=== PATIENT | male | born 1945 | race Caucasian/White ===

== ENCOUNTER → 2018-01-16 08:07 | Outpatient (CLI) | payer MEDICARE, OTHER, SELFPAY ==
--- NOTE | 2018-01-16 | DI.ECHO.S_ITS ---
[facility]---------+ [facility] +---------+ : : [address] : : : : [id number] : : : : Phone: [phone] Echocardiogram Report + + :Name: PATRICIA SIMS Study Date: 01/16/2018 Height: 71 in : :[facility] Weight: 219 lb : : Gender: Male BSA: 2.2 m2 : :: 1945 Age: 72 yrs BP: 134/88 mmHg: :Reason For Study: CAD : :Ordering Physician: Frances : :Rut Performed By: Taniya Tyson : :Referring: Dr. Tinajero Roof : + + Interpretation Summary Normal sinus rhythm. Normal LV size and wall thickness; there is global hypokinesis. Limited endocardial visualization precludes meaningful EF quantification, but it is at least mildly reduced. Normal chamber sizes. No significant valvular abnormalities. Compared to prior study 11/23/2016, LV is less dynamic Procedure: A two-dimensional transthoracic echocardiogram with color flow and Doppler was performed. The study quality was technically good. Comparison is made with the echocardiogram of 11-23-16. The patient was in normal sinus rhythm during the exam. Left Ventricle: The left ventricle is normal in size. There is normal left ventricular wall thickness. Diastolic function could not be accurately assessed due to unobtainable data. Right Ventricle: The right ventricle grossly appears normal in size with probable normal systolic function. Atria: The left atrial size is normal. Right atrial size is normal. The interatrial septum is intact with no evidence for an atrial septal defect. Mitral Valve: The mitral valve is grossly normal. There is trace mitral regurgitation. Aortic Valve: The aortic valve opens well. No aortic regurgitation is present. Tricuspid Valve: The tricuspid valve is normal in structure and function. No tricuspid regurgitation. Pulmonic Valve: The pulmonic valve is not well seen, but is grossly normal. There is trace pulmonic regurgitation. Great Vessels: The aortic root is normal size. The ascending aorta is at the upper limits of normal in size. The aortic arch is normal in size. The IVC is of normal diameter and collapses greater than 50% with a sniff. This suggests a low right atrial pressure of 3 mm Hg. Pericardium/ Pleura There is no pericardial effusion. There is no pleural effusion. MMode/2D Measurements & Calculations LVIDd: 4.4 cm Ao root diam: 3.5 cm LVIDs: 3.4 cm Aortic Jxn: 2.6 cm FS: 22.6 % asc Aorta Diam: 3.5 cm IVSd: 0.94 cm Ao Arch Diam (Prox Trans): 2.6 cm LVPWd: 0.65 cm LV mckinley. diameter/BSA (cm/m^2): 2.0 LV sys. diameter/BSA (cm/m^2): 1.6 LA dimension: 3.0 cm RA long axis: 5.1 cm LA A2 area: 17.1 cm2 RA area: 20.3 cm2 LA A4 area: 25.1 cm2 RA vol: 68.9 ml LA length (vol): 5.8 cm RA : 31.5 ml/m2 LA vol: 62.9 ml IVC diam: 1.4 cm LA vol index: 28.7 ml/m2 RVDd major: 4.7 cm RVD1 (basal): 3.1 cm RVD2 (mid): 2.9 cm Doppler Measurements & Calculations Ao V2 max: 109.7 cm/sec MV E max jaxon: 41.4 cm/sec Ao V2 mean: 81.3 cm/sec MV A max jaxon: 78.4 cm/sec Ao max P.8 mmHg MV E/A: 0.53 Ao mean P.9 mmHg Med Peak E' Jaxon: 5.2 cm/sec Ao V2 VTI: 24.8 cm E/E' med: 8.0 Lat Peak E' Jaxon: 5.2 cm/sec E/E' lat: 8.0 E/e' average: 8.0 MV dec time: 0.26 sec MV P1/2t: 75.4 msec PA V2 max: 67.8 cm/sec MV P1/2t max jaxon: 41.2 cm/sec PA V2 mean: 46.8 cm/sec MVA(P1/2t): 2.9 cm2 PA mean P.0 mmHg PA Accel Time: 0.16 sec Reading Physician:03:27 AM
== END ==
PROVIDERS: PCP Internal Medicine; Visit Provider Internal Medicine
DX: I25.10 Atherosclerotic heart disease of native coronary artery without angina pectoris (principal)
CPT/HCPCS: 93306

== ENCOUNTER → 2021-05-04 08:47 | Outpatient (CLI) | payer MEDICARE, OTHER, SELFPAY ==
--- NOTE | 2021-05-04 | DI.RAD.S_ITS ---
PROCEDURE: FL BARIUM SWALLOW W SPEECH INDICATIONS: Acute pharyngitis, unspecified COMPARISON: None. TECHNIQUE: Examination was conducted in conjunction with speech pathology per standard protocol. In the lateral projection, filming was performed of the patient swallowing. AP projection filming may also be performed with patient swallowing. COMPARISON: FINDINGS: Function: The oral preparatory phase appears normal, with proper containment. The subsequent oral propulsive phase, pharyngeal phase, and esophageal phase of swallowing also appear normal with all proffered substances. No laryngotracheal penetration or aspiration. No pathologic vallecular pooling. Morphology: No cricopharyngeal bar is identified. No cervical esophageal webs. No Zenker's diverticulum. No strictures. A calibrated barium tablet passes normally through the gastroesophageal junction. IMPRESSION: No laryngeal penetration or tracheobronchial aspiration. Of note, please see independent report generated by the speech pathologist for further detailed specifics and characterization of the modified speech swallow study. Dictated by: Karel Kaufman M.D. on 05/04/2021 at 11:12 Approved by: Karel Kaufman M.D. on 05/04/2021 at 11:13
--- NOTE | 2021-05-04 16:05 | ST.SWALLOW ---
Visit Care Team Role Provider Type Marian Underwood MD Attending Provider Non-Staff Primary Care Provider Referring Provider Specialty: Medical Address: [address] [place] [address], [id number] Email: Modified Barium Swallow Study NEWSPAPER REPORTER Modified Barium Swallow Study Start: 05/04/21 11:24 Freq: Status: Active Protocol: Document 05/04/21 11:24 LNK (Rec: 05/04/21 16:04 LNK [id number]) Modified Barium Swallow Study Total Time Visit Start Time 09:30 Visit Stop Time 10:15 Total Visit Minutes [address] Snyder, ENT; PCP- Dr Salazar Reason for Referral difficulty with swallowing Setting Setting Outpatient Care Patient Information Identification Type Name,Date of Patient History Pt presented with difficulty swallowing that has been progressively harder to swallow and is more painful. He reported a medical history of advanced prostate cancer. Pt states he cannot eat/ swallow 'regular foods'. He describes his current diet as consisting of oatmeal with fruit, cottage cheese and other very soft foods. Advanced solids are very difficult and painful to swallow. Pt reports that this swallow problem has been occurring for approximately 5 months. He describes swallowing as though his throat closes up and becomes tight. Additionally, he reports frequent coughing and choking. Pt notes a very dry mouth, especially at night. He keeps water and lozenges nearby all day and night, which help with oral/throat moisture. Pt also described his voice as weak and reduced in volume. He stated he is very careful to preserve vocal strength, choosing non-verbal communication, if possible. Subjective Observations Pt was seated in the fluoroscopy chair and given directions and instructions. He indicated he understood and agreed to proceed. Patient Positioning Position View Lat-A/P Imaging Lateral View Textures Administered Trials Presented Thin Liquid via Spoon,Thin Liquid via Cup,Pudding Thick Liquid via Spoon,Regular Textures Oral Phase Source: MBSIMP (TM) (C) Bolus Specific Scoring Grid Lip Closure No Impairment (WNL) Tongue Control During Bolus Hold No Impairment (WNL) Bolus Prep/Mastication No Impairment (WNL) Bolus Transport/Lingual Motion No Impairment (WNL) A/P Lingual Propulsion Delay No Oral Residue WFL Nasal Regurgitation No Additional Oral Phase Observations OME was observed to be WNL for strength and ROM. Oral phase of swallow was WNL, demonstrating rotary chew for mastication, good bolus hold, control and AP transition to pharynx. Pharyngeal Phase Source: MBSIMP (TM) (C) Bolus Specific Scoring Grid Delayed Initiation of Pharyngeal Swallow Yes: Pre-swallow spillage to the valeculla and pyrifom sinuses Soft Palate Elevation No Impairment (WNL) Tongue Base Strength/Range of Motion Mild Impairment Residue Along the Tongue Base Yes Laryngeal Elevation No Impairment (WNL) Anterior Hyoid Movement Moderate Impairment Epiglottic Range of Motion No Impairment (WNL) Vallecular Residue Yes Clearance of Vallecular Residue Mild Impairment Laryngeal Vestibular Closure No Impairment (WNL) Pharyngeal Stripping Wave Mild Impairment Pharyngeal Contraction WFL Posterior Pharyngeal Wall Residue No Residue in the Pyriform Sinuses No Esophageal Clearance Upright Position Mild Impairment Pharyngoesophageal Backflow Observed No Additional Pharyngeal Phase Observations Swallow response was delayed with good laryngeal elevation; however the movement of the hyoid was minimal. This resulted in mild laryngopharyngeal contact and mildly reduced posterior wall constriction. During each swallow, a noticeable narrowing of the pharynx was observed near C3. Anterior and posterior bulges of tissue were observed opposing each other, significantly restricting bolus flow to the UES. No obvious osteophyte was noted at C3 that could explain the posterior bulge. Several swallows were needed in order for the bolus to clear the pharynx. Advanced texture trial of a cookie with barium was difficult, requiring >4 swallows. Moderate residue of the trial remained in the valeculla, necessitating water to clear residue. The pt was clearly using effort to swallow and he appeared to be in pain with each swallow attempt. The laryngeal seal was complete with good airway protection. No aspiration or laryngeal penetration were observed. A/P View Textures Administered Trials Presented Regular Textures A/P View Observations Vocal Fold Function Good Residue Observed Valleculae Right,Valleculae Left Esophageal Function WFL Esophageal Clearance Upright Position WFL Additional Observations Upon initiation of the swallow in AP view. The 13mm pill deviated to the right side of the pharynx before entering the esophagus. Once in the esophagus, the tablet was swallowed with more sips of water. Clinical Impressions Findings The pt demonstrated mild pharyngeal dysphagia secondary to narrowed pharynx caused by opposing bulges of soft tissue near C3 above the UES during the swallow. The bulges are not apparent at rest. These bulges narrowed the pharynx significantly and may be related to the pt's c/o tightening in his throat and pain when swallowing. Swallow therapy may be indicated; however the exercises will be tongue base focused. These exercises will not address the pharyngeal narrowing during swallows or address the pt's pain with swallowing. Recommend referral back to ENT for further assessment. Patient Appropriate for Therapy see above Recommendations Diet Comments continue current diet as tolerated Treatment Plan Therapy Recommendations Lingual Exercises Recommended Referrals ENT Consult
== END ==
PROVIDERS: PCP Internal Medicine; Referring Provider Internal Medicine; Visit Provider Internal Medicine
DX: J02.9 Acute pharyngitis, unspecified (principal)
CPT/HCPCS: 74230; 92611

== ENCOUNTER → 2021-06-04 09:11 | Outpatient (CLI) | payer MEDICARE, OTHER, SELFPAY ==
--- NOTE | 2021-06-04 09:14 | DI.ECHO.S_ITS ---
Version: 1 Study ID: [id number] [place] [address] Name: PATRICIA SIMS Study Date: 06/04/2021, 9: 27 AM : 1945 BP: 118 / 71 mmHg Gender: Male Height: 70 in Age: 75 Years Weight: 180.003 lb BSA: 2.00 mA? Ordering: Daniel Ji M.D. Referring: DANIEL JI Clinician: Tee Sanchez Reason For Study: CAD History: Summary Statements Normal sinus rhythm. Normal LV size and wall thickness. There is basal anteroseptal, mid-anteroseptal hypokinesis, mid-anterior akinesis. Otherwise normal wall motion. EF is 35-40%. Normal chamber sizes. No valvular abnormalities. Compared to prior study 01/2019 LV is less dynamic. EF is down from 45-50% to 35-40%. Procedure: A two-dimensional transthoracic echocardiogram with color flow and Doppler was performed. The study quality was technically adequate. Comparison is made with the echocardiogram of 02/02/2019. Left Ventricle: Diastolic parameters suggest a relaxation abnormality of the left ventricle, consistent with probable normal filling pressures. Left ventricular systolic function is moderately reduced. Left ventricular ejection fraction is estimated to be 35 +/- 5%. The left ventricle is normal in size and wall thickness. There is septal wall severe hypokinesis. There is apical severe hypokinesis. Right Ventricle: The right ventricle is normal in size and function. Atria: The interatrial septum grossly appears intact with no obvious evidence for an atrial septal defect. Both atria are normal in size. Mitral Valve: There is trace mitral regurgitation. There is mild mitral annular calcification. Aortic Valve: There is trace aortic regurgitation. There is mild aortic valve sclerosis. Tricuspid Valve: Pulmonary artery pressures cannot be estimated because of the lack of a measurable TR jet velocity. No tricuspid regurgitation. The tricuspid valve is normal in structure and function. Pulmonic Valve: There is a trace or physiologic amount of pulmonic regurgitation. The pulmonic valve is not well seen, but is grossly normal. Great Vessels: The ascending aorta could not be visualized. The aortic root is normal size. The IVC is of normal diameter and collapses greater than 50% with a sniff. This suggests a low right atrial pressure of 3 mm Hg. Pericardium/ Pleura: There is no pericardial effusion. There is no pleural effusion. 2D and M-Mode Measurements and Calculations LVIDd: 4.3 cm LVOT diam: 2.10 cm LVIDs: 3.4 cm Ao root diam: 3.4 cm IVSd: 1.00 cm LVPWd: 0.90 cm LV mckinley. diameter/BSA (cm/m^2): 2.15 LV sys. diameter/BSA (cm/m^2): 1.70 TAPSE_phl: 1.97 cm LA A4 area: 22.1 formation testing operator? RA long axis: 5.3 cm LA A2 area: 18.7 formation testing operator? LA length (vol): 6.0 cm LA vol: 58.5 ml LA vol index: 29.3 ml/mA? Doppler Measurements and Calculations Ao V2 max: 104.0 cm/sec LVOT Max Jaxon: 96.0 cm/sec Ao V2 mean: 78.3 cm/sec LV V1 max P.7 mmHg Ao V2 VTI: 23.0 cm LV V1 VTI: 20.7 cm Ao max P.0 mmHg Ao mean P.0 mmHg JEAN-PIERRE(I,D): 3.1 formation testing operator? JEAN-PIERRE(V,D): 3.2 formation testing operator? JEAN-PIERRE indexed to BSA (cm^2/m^2): 1.56 sev ratio: 0.90 MV E max jaxon: 44.1 cm/sec MV dec time: 0.31 sec MV A max jaxon: 59.1 cm/sec MV E/A: 0.75 Med Peak E' Jaxon: 7.5 cm/sec Lat Peak E' Jaxon: 8.4 cm/sec E/e' average: 5.5 Electronically signed by: Daniel Ji M.D. 06/06/2021, 9: 10 AM
== END ==
PROVIDERS: PCP Internal Medicine; Referring Provider Internal Medicine; Visit Provider Internal Medicine
DX: I35.8 Other nonrheumatic aortic valve disorders (principal); I25.10 Atherosclerotic heart disease of native coronary artery without angina pectoris
CPT/HCPCS: 93306

== ENCOUNTER → 2021-09-29 09:07 | Outpatient (CLI) | payer MEDICARE, OTHER, SELFPAY ==
--- NOTE | 2021-09-29 | DI.ECHO.S_ITS ---
Version: 1 Study ID: [id number] [place] [address] Name: PATRICIA SIMS Study Date: 09/29/2021, 9: 25 AM : 1945 BP: 111 / 72 mmHg Gender: Male Height: 70 in Age: 76 Years Weight: 183 lb BSA: 2.01 mA? Ordering: DANIEL JI Referring: DANIEL JI Clinician: Tee Sanchez Reason For Study: ICMP History: Summary Statements Normal sinus rhythm. Normal LV size and wall thickness. There is basal anteroseptal, mid-anteroseptal akinesis. There is mid-inferoseptal akinesis. EF is 45-50%. Normal chamber sizes. No significant valvular abnormalities. Compared to prior study 06/04/2021 LV is more dynamic. EF is up from 35-40% to 45-50%. Procedure: A two-dimensional transthoracic echocardiogram with color flow and Doppler was performed in limited views only. The study quality was technically adequate. Comparison is made with the echocardiogram of 06/04/2021. Left Ventricle: Left ventricular systolic function is mildly reduced. The ejection fraction is estimated to be 45-50%. The left ventricle is normal in size and wall thickness. There is septal wall hypokinesis. Right Ventricle: The right ventricle is normal in size and function. Atria: Mitral Valve: Aortic Valve: Pulmonic Valve: Great Vessels: Pericardium/ Pleura: There is no pericardial effusion. There is no pleural effusion. 2D and M-Mode Measurements and Calculations LVIDd: 4.6 cm LVIDs: 3.5 cm IVSd: 0.80 cm LVPWd: 0.93 cm LV mckinley. diameter/BSA (cm/m^2): 2.28 LV sys. diameter/BSA (cm/m^2): 1.74 Electronically signed by: Daniel Rose.D. 09/29/2021, 2: 32 PM
== END ==
PROVIDERS: PCP Internal Medicine; Referring Provider Internal Medicine; Visit Provider Internal Medicine
DX: I25.5 Ischemic cardiomyopathy (principal)
CPT/HCPCS: 93307

== ENCOUNTER → 2021-12-08 10:54 | Outpatient (CLI) | payer MEDICARE, OTHER, SELFPAY ==
[2021-12-08 13:01] LABS: COVID19 -Nasal RAPID Negative (Negative)
== END ==
PROVIDERS: PCP Internal Medicine; Visit Provider Surgery
DX: Z20.822 Contact with and (suspected) exposure to COVID-19 (principal); Z01.812 Encounter for preprocedural laboratory examination
CPT/HCPCS: 87635; C9803

== ENCOUNTER 2021-12-09 13:22 | Day surgery (SDC) | payer MEDICARE, OTHER, SELFPAY ==
[2021-12-09] VITALS (7 sets, daily range): BP systolic 90–111; BP diastolic 59–71; PULSE 55–66; RESP 14–16; TEMP 35.9–36.1; O2SAT 96–100; BMI 26.1
--- NOTE | 2021-12-09 | PATH_ITS ---
[facility] Accession Number: [id number] No. of containers..01 Tissue . 01 Material submitted: . stomach - STOMACH BIOPSY . 01 Clinical history: . R/O HPYLORI . 01 Diagnosis: Stomach, Biopsy: Gastric antral mucosa with mild features of reactive gastropathy and mild chronic inflammation. Negative for Helicobacter organisms by immunohistochemistry. Negative for intestinal metaplasia. Negative for dysplasia or malignancy. MRV 12/15/2021 1104 Local . 01 Electronically signed: . Jose Angel Lawrence MD, PhD, Pathologist NPI- [id number] . 01 Gross description: . STOMACH BIOPSY: Received in formalin is 1 fragment(s) of tuttle, soft tissue measuring 0.4 x 0.3 x 0.2 cm submitted entirely in 1 cassette(s) /CPE 12/10/2021 0747 Local . 01 Microscopic: . An immunohistochemical stain was performed to evaluate for Helicobacter organisms and is negative. The control stain showed appropriate reactivity. . * This test was developed and its performance characteristics determined by [facility]. It has not been cleared or approved by the U.S. Food and Drug Administration. The FDA has determined that such clearance or approval is not necessary. This test is used for clinical purposes. It should not be regarded as investigational or for research. . 01 Pathologist provided ICD-10: R13.10, K29.60 . 01 CPT . 100632, [id number] Specimen Comment: A courtesy copy of this report has been sent to [phone] Performed at: 01 [facility] [address] [place] [address] [address], [place], [place] [id number] MD Archie Armas MD Phone: [phone]
[2021-12-09] MEDS: LACTATED RINGERS 1,000 ML 42 ML IV (14:46)
--- NOTE | 2021-12-09 14:48 | PM.PREOP ---
Pre-operative Note COVID-19 COVID-19 status: Negative Interval Note History & Physical reviewed/Exam performed by Physician: Yes Changes to H&P: No ASA Class (for procedural sedation): III
--- NOTE | 2021-12-09 14:48 | PM.OP.EGD ---
Operative Date/Time/Diagnoses Date of procedure: 12/09/21 Pre-op diagnosis: See indication and findings Procedure & Clinicians Study performed: EGD Indications: Left-sided neck and suprasternal dysphagia and odynophagia. Workup so far negative including modified barium swallow. Rule out intrinsic structural lesion Surgeon: Benton Sotelo Procedure Notes Procedure in detail: After informed consent was obtained patient was placed in left lateral decubitus position. The video upper scope placed into the oropharynx and with the patient's help swallowed into the esophagus. The scope was passed the esophagus stomach and duodenum. On slow withdrawal mucosa was carefully examined. The scope was removed. The patient tolerated procedure well. Blood loss none Complications none Sedation propofol Findings 1. Normal hypopharynx, photos taken 2. Normal esophagus particularly without any abnormality in the proximal/cervical esophagus. 3. Normal GE junction 4. Patchy gastric erythema with 2-3 hematin flecks. Biopsies taken to rule out Helicobacter 4. Normal duodenal bulb and sweep I will have our medical oncology physician Alma Delia Tinajero ask Dr. Brown: Whether he prefers ultrasound or CT of the neck for follow-up prior to seeing him in the office.
== END 2021-12-09 16:07 | disposition home or self-care (01) ==
PROVIDERS: PCP Internal Medicine; Referring Provider Internal Medicine Gastroenterology; Visit Provider Internal Medicine Gastroenterology
PROC: 0DJ08ZZ Inspection of Upper Intestinal Tract, Via Natural or Artificial Opening Endoscopic (ICD-10-PCS; CPT 43235; principal; 2021-12-09 14:30)
DX: R13.19 Other dysphagia (principal); K31.9 Disease of stomach and duodenum, unspecified; K29.50 Unspecified chronic gastritis without bleeding
CPT/HCPCS: 43239; J2704

== ENCOUNTER → 2021-12-18 08:14 | Outpatient (CLI) | payer MEDICARE, OTHER, SELFPAY ==
--- NOTE | 2021-12-18 | DI.CT.S_ITS ---
PROCEDURE: CT SOFT TISSUE NECK W CON INDICATIONS: DYSPHAGIA TECHNIQUE: After the administration of intravenous contrast, 3.0 mm axial sections acquired from the sella to the aortic arch. Additional oblique axial 3.0 mm sections acquired through the pharynx. 3 mm thick coronal and sagittal reformats were generated. For radiation dose reduction, the following was used: automated exposure control. COMPARISON: Outside Film, CT, CT SOFT TISSUE NECK WITH CONTRAST, 05/07/2021, 7:37. FINDINGS: Image quality: There is artifact associated with the metallic hardware. Lymph nodes: No enlarged lymph nodes seen throughout the neck. Vessels: Visualized vasculature appears patent. Neck spaces: In this patient with this given history, scrutiny is given to mucosal masses. None can be seen. The oropharynx, nasopharynx, and pharynx appear unremarkable. The vocal cords, false vocal cords, pyriform sinuses, epiglottis, vallecula, and tongue base all appear normal. Extramucosal spaces appear unremarkable. Glands: The parotid and submandibular glands appear normal. Thyroid gland is small in size. Miscellaneous: Visualized brain and orbits appear normal. Lung apices appear clear. Superficial soft tissues appear normal. Bones: No suspicious bony lesions. Visualized sinuses and mastoids appear unremarkable. Cervical spine degenerative changes are seen, with at least moderate disc space narrowing seen at C5-C6 and at C6-C7. IMPRESSION: No masses are seen to explain the patient's presenting symptoms. No enlarged lymph nodes are seen. Dictated by: Neel Reis M.D. on 12/18/2021 at 9:56 Approved by: Neel Reis M.D. on 12/18/2021 at 9:58
[2021-12-18 08:47] LABS: BUN Creatinine Ratio 21.5 (6-22); Blood Urea Nitrogen 17 mg/dL (9-20); Estimated Glomerular Filt Rate > 60 mL/min (>60)
== END ==
PROVIDERS: PCP Internal Medicine; Referring Provider Internal Medicine Gastroenterology; Visit Provider Internal Medicine Gastroenterology
DX: R13.10 Dysphagia, unspecified (principal)
CPT/HCPCS: 36415; 70491; 82565; 84520; Q9967

== ENCOUNTER → 2023-12-26 08:33 | Outpatient (CLI) | payer MEDICARE, OTHER, SELFPAY ==
--- NOTE | 2023-12-26 08:35 | DI.NM.S_ITS ---
PROCEDURE: NM BONE SCAN WHOLE BODY RADIOPHARMACEUTICAL: 21.5 mCi Tc-99m MDP IV. INDICATIONS: MALIGNANT NEOPLASM PROSTATE TECHNIQUE: Delayed whole-body scintigrams were obtained approximately 3-4 hours after intravenous injection of radiotracer. Anterior and posterior views were acquired from vertex to feet. Additional left and right oblique views of the pelvic were obtained. COMPARISON: None. FINDINGS: Physiologic uptake is noted within the kidneys and bladder. Increased uptake is noted at the 1st CMC joints bilaterally. Increased uptake is also noted at the ankle joints and knees as well as shoulder girdles. Scattered areas of uptake are noted within the spine, with appearance likely degenerative although underlying metastatic disease can be indistinguishable. IMPRESSION: No definitive areas of metastatic disease. Uptake areas are identified most suggestive of degenerative change. Dictated by: Amanda Farley M.D. on 12/26/2023 at 20:02 Approved by: Amanda Farley M.D. on 12/26/2023 at 20:05
== END ==
PROVIDERS: PCP Family Medicine
DX: C61 Malignant neoplasm of prostate (principal)
CPT/HCPCS: 78306; A9503